=== PATIENT | female | born 1960 | race Caucasian/White ===

== ENCOUNTER 2017-03-24 23:21 | Emergency (ER) | payer MEDICAID ==
[~2017-03-24] VITALS: Ht 170.2 cm; Wt 110.0 kg
[2017-03-24] MEDS ORDERED: LIDOCAINE 1%, 20ML INFIL ONE (23:30)
[2017-03-24] MEDS ORDERED: SODIUM CHLORIDE 0.9% 1,000ML IVBOLUS ONE (23:30)
[2017-03-24] MEDS ORDERED: MORPHINE SULFATE 4 MG/ML, 1ML IVPush PRN (23:30)
[2017-03-24] MEDS ORDERED: SODIUM CHLORIDE FLUSH 10ML SYR IVF ONE (23:30)
[2017-03-24] MEDS ORDERED: ONDANSETRON 2MG/ML, 2ML IVPush ONE (23:30)
[2017-03-24] MEDS ORDERED: DIPH,PERTUSS(ACELL),TET VAC/PF 0.5 ML IM-VACC ONE (23:30)
[2017-03-24] MEDS ORDERED: PLEASE ENTER ALLERGIES MC SCH ×2 (23:45)
[2017-03-24] MEDS ORDERED: ONDANSETRON 2MG/ML, 2ML ONE (23:47)
[2017-03-25] MEDS ORDERED: MORPHINE SULFATE 4 MG/ML, 1ML ONE (00:02)
[2017-03-25] MEDS ORDERED: DIPH,PERTUSS(ACELL),TET VAC/PF 0.5 ML IM-VACC ONE (00:39)
[2017-03-25 00:52] VITALS: BP 101/55
[2017-03-25] MEDS ORDERED: BACITRACIN ZINC OINT 500U/GM, 0.9 GM ONE (00:54)
== END 2017-03-25 01:39 | disposition home or self-care (01) ==
LOC: EDBD 23:21 → ED 23:48
DX: S01.01XA Laceration without foreign body of scalp, initial encounter (principal); S06.9X1A Unspecified intracranial injury with loss of consciousness of 30 minutes or less, initial encounter; F10.220 Alcohol dependence with intoxication, uncomplicated; E11.9 Type 2 diabetes mellitus without complications; E66.9 Obesity, unspecified; Z90.49 Acquired absence of other specified parts of digestive tract; Z79.84 Long term (current) use of oral hypoglycemic drugs
CPT/HCPCS: 12002; 36415; 70450; 72125; 80307; 96361; 96374; 96375; 99285; J2405; J7030